=== PATIENT | female | born 1985 | race Caucasian/White ===

== ENCOUNTER 2024-01-31 09:11 | Emergency (ER) | payer BC ==
[2024-01-31] MEDS ORDERED: Ondansetron ODT 4 MG TAB ONE (09:31)
[2024-01-31 09:35] LABS: Pregnancy Test - Urine (BHCG) Negative (Negative); Pregu Control Background? CLEAR/WHITE (CLR/WHITE); Pregu Control Bar Appear? YES (CONTROL BAR)
[2024-01-31 09:36] LABS: Bilirubin Negative (Negative); Blood, Urine Negative (Negative); Clarity Slightly Cloudy (Clear); Glucose, Urine (Dipstick) Negative (Negative); Ketone, Urine Negative (Negative); Leukocyte Large (Negative); Nitrite Positive (Negative); Protein, Urine (Dipstick) Negative (Neg-Trace); Urobilinogen 0.2 mg/dL (Less than 2)
[2024-01-31 09:38] LABS: RBC/HPF 0-3 HPF (0-3)
[2024-01-31 09:39] LABS: Bacteria/HPF 2+ HPF (None Seen); CAUTI Indications for Culture Dysuria,urgency,freq; Squamous Epithelial 0-3 HPF (0-3); WBC/HPF Greater than 50 HPF (0-3)
[2024-01-31 09:40] LABS: Urine Culture Reflex Yes Yes
[2024-01-31] MEDS ORDERED: Lidocaine 1% PF 5 ML VIAL ONE (09:49)
[2024-01-31] MEDS ORDERED: cefTRIAXone (ROCEPHIN) 1 GM VIAL ONE (09:50)
== END 2024-01-31 09:56 | disposition home or self-care (01) ==
LOC: MADERS 09:11
DX: N39.0 Urinary tract infection, site not specified (principal); R11.2 Nausea with vomiting, unspecified
CPT/HCPCS: 36416; 81001; 81025; 87077; 87086; 87186; 96372; 99284; J0696; Q0162